=== PATIENT | female | born 1980 | race Two or more races ===

== ENCOUNTER 2020-12-28 09:07 | Emergency (ER) | payer OTHER ==
[2020-12-28] MEDS ORDERED: SODIUM CHLORIDE 1,000 ML IV STA ×2 (09:46→12:28)
[2020-12-28] MEDS ORDERED: ONDANSETRON *ODT* 4 MG TABLET SL ONE (09:46)
[2020-12-28] MEDS ORDERED: KETOROLAC TROMETHAMINE 30 MG/1 ML VIAL IM ONE (09:46)
[2020-12-28 10:17] LABS: BASO % 0.4 % (0-2.0); EOS % 0.6 % (0-4.5); HEMATOCRIT 37.1 % (32.4-45.2); HEMOGLOBIN 12.2 GM/dL (10.7-15.3); MCH 25.4 pg (25.7-33.7); MCHC 32.8 g/dl (32.0-36.0); MEAN CELL VOLUME 77.3 fl (80-96); MEAN PLT VOLUME 9.1 fl (7.5-11.1); MONO % 4.5 % (3.8-10.2); NEUT % 81.5 % (42.8-82.8); PLATELET COUNT 225 10^3/uL (134-434); RBC 4.79 M/mm3 (3.60-5.2); RDW 15.1 % (11.6-15.6)
[2020-12-28 10:26] LABS: CALCIUM 9.4 mg/dL (8.5-10.1)
[2020-12-28 10:27] LABS: BLOOD UREA NITROGEN 8.2 mg/dL (7-18)
[2020-12-28 10:30] VITALS: BP 131/95; PULSE 70; TEMP 98.3; BMI 30.9
[2020-12-28 10:30] LABS: CREATININE 0.7 mg/dL (0.55-1.3)
[2020-12-28 10:31] LABS: BILIRUBIN,TOTAL 0.3 mg/dL (0.2-1); TOT PROT 7.9 g/dl (6.4-8.2)
[2020-12-28 11:20] LABS: PH,URINE 7.5 (5.0-8.0); URINE APPEARANCE TURBID; URINE BILIRUBIN NEGATIVE (NEGATIVE); URINE COLOR YELLOW; URINE GLUCOSE (UA) NEGATIVE (NEGATIVE); URINE KETONE NEGATIVE (NEGATIVE); URINE LEUK ESTERASE NEGATIVE (NEGATIVE); URINE NITRITE NEGATIVE (NEGATIVE); URINE PROTEIN NEGATIVE (NEGATIVE); URINE UROBILINOGEN 0.2 mg/dL (0.2-1.0)
[2020-12-28] MEDS ORDERED: TAMSULOSIN HCL 0.4 MG CAP PO ONE (12:28)
[2020-12-28] MEDS ORDERED: TAMSULOSIN HCL 0.4 MG CAP ONE (13:14)
== END 2020-12-28 14:14 | disposition home or self-care (01) ==
LOC: JER 09:07 → EDBD 09:07 → JER 14:14
PROC: 3E023NZ Introduction of Analgesics, Hypnotics, Sedatives into Muscle, Percutaneous Approach (ICD-10-PCS; principal; 2020-12-28)
PROC: 3E0337Z Introduction of Electrolytic and Water Balance Substance into Peripheral Vein, Percutaneous Approach (ICD-10-PCS; 2020-12-28)
DX: R10.32 Left lower quadrant pain (principal); N83.209 Unspecified ovarian cyst, unspecified side
CPT/HCPCS: 36415; 74176-TC; 80053; 81003; 84703; 85025; 87086; 87186; 99285-25; Q0162

== ENCOUNTER → 2023-08-18 | Day surgery (SDC) | payer OTHER | END | disposition home or self-care (01) | LOC: FMAMMOTONE 10:32 | PROVIDERS: ATTEND Surgery | PROC: 0HBT3ZX Excision of Right Breast, Percutaneous Approach, Diagnostic (ICD-10-PCS; principal; 2023-08-18) | DX: Z53.8 Procedure and treatment not carried out for other reasons (principal); R92.8 Other abnormal and inconclusive findings on diagnostic imaging of breast | CPT/HCPCS: 19081 ==